=== PATIENT | male | born 2000 | race Hispanic/Latino ===

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

== ENCOUNTER 2021-07-05 18:19 | Emergency (ER) | payer SELFPAY ==
[2021-07-05] MEDS ORDERED: dexAMETHasone 4 MG TAB ONE (19:54)
[2021-07-05] MEDS ORDERED: HYDROCOD 2.5mg-ACETAMIN 108mg/5mL Soln ONE (19:54)
[2021-07-05] MEDS ORDERED: CEFTRIAXONE 1000 MG/VIAL ONE (20:44)
[2021-07-05] MEDS ORDERED: LIDOCAINE 1% MPF 2 ML AMPULE ONE (20:47)
--- NOTE | 2021-07-05 21:23 | ER ---
Nurse's Notes [facility] Name: Evaristo Guevara Age: 20 yrs Sex: Male : 2000 Arrival Date: 07/05/2021 Time: 18:20 Bed 12 Private MD: Diagnosis: Acute tonsillitis, unspecified Presentation: 07/05 19:32 Chief complaint: Patient states: COVID + my eyes have been hurting, I have been ld1 coughing bad, my throat hurts. My lips just swelled up today. Visible sores in throat and mouth. Coronavirus screen: Client presents with at least one sign or symptom that may indicate coronavirus-19. Standard/surgical mask placed on the client. Ebola Screen: No symptoms or risks identified at this time. Initial Sepsis Screen: Does the patient meet any 2 criteria? No. Patient's initial sepsis screen is negative. Does the patient have a suspected source of infection? No. Patient's initial sepsis screen is negative. Risk Assessment: Do you want to hurt yourself or someone else? Patient reports no desire to harm self or others. Onset of symptoms was July 05, 2021. 19:32 Method Of Arrival: Ambulatory ld1 19:32 Acuity: PAZ 4 ld1 Triage Assessment: 19:36 General: Appears in no apparent distress. comfortable, Behavior is calm, cooperative, ld1 appropriate for age. Pain: Denies pain. EENT: Throat is reddened sores in throat. Neuro: Level of Consciousness is awake, alert, obeys commands, Oriented to person, place, time, situation. Respiratory: Airway is patent Respiratory effort is even, unlabored. Historical: - Allergies: 19:36 No Known Allergies; ld1 - Home Meds: 19:36 None [Active]; ld1 - PMHx: 19:36 None; ld1 - PSHx: 19:36 None; ld1 - Immunization history:: Adult Immunizations not up to date, Client reports having NOT received the Covid vaccine. - Social history:: Smoking status: Patient denies any tobacco usage or history of. Patient/guardian denies using alcohol, street drugs. Screenin:06 Abuse screen: Denies threats or abuse. Nutritional screening: No deficits noted. sf1 Tuberculosis screening: No symptoms or risk factors identified. Fall Risk None identified. Assessment: 20:06 General: Appears in no apparent distress. Behavior is calm, cooperative, appropriate sf1 for age. Pain: Complains of pain in mouth Pain currently is 6 out of 10 on a pain scale. Neuro: No deficits noted. Cardiovascular: No deficits noted. Respiratory: Respiratory effort is even, unlabored. GI: No deficits noted. : No deficits noted. EENT: Reports sores in the mouth. 21:35 Respiratory:. sf1 21:35 Respiratory: Airway is patent. sf1 21:36 Respiratory: Breath sounds are clear bilaterally. sf1 Vital Signs: 19:32 BP 125 / 78; Pulse 112; Resp 18; Temp 100.2(TE); Pulse Ox 98% on R/A; Weight 86.18 kg; ld1 Height 5 ft. 5 in. (165.10 cm); Pain 0/10; 21:31 BP 108 / 69; Pulse 88; Pain 0/10; sf1 19:32 Body Mass Index 31.62 (86.18 kg, 165.10 cm) ld1 ED Course: 18:20 Patient arrived in ED. as 19:36 Triage completed. ld1 19:36 Arm band placed on right wrist. ld1 19:38 Strep Sent. ld1 19:38 Group A Streptococcus Rapid Sc Sent. ld1 19:40 Adam Rodriguez PA is PHCP. cp 19:40 Holger Carnes MD is Attending Physician. cp 19:54 Hailey Hernández RN is Primary Nurse. sf1 20:04 Influenza Screen (a \T\ B) Sent. sf1 20:05 Group A Streptococcus Rapid Sc Sent. sf1 20:06 Bed in low position. Call light in reach. sf1 20:06 No provider procedures requiring assistance completed. Patient did not have IV access sf1 during this emergency room visit. Administered Medications: 20:00 Drug: Lortab Liquid 15 ml Route: PO; sf1 20:00 Drug: Decadron (dexamethasone) 10 mg Route: PO; sf1 20:54 Drug: Rocephin (cefTRIAXone) 1 grams Route: IM; Site: right gluteus; sf1 Outcome: 21:22 Discharge ordered by . cp 21:36 Discharged to home ambulatory. sf1 21:36 Condition: stable 21:36 Discharge instructions given to patient, Instructed on discharge instructions, Demonstrated understanding of instructions, follow-up care, medications, Prescriptions given X 3. 21:36 Patient left the ED. sf1 Signatures: Svetlana Payne Corey, PA PA cp Dibbern, Lauren, RN RN ld1 Hailey Hernández RN RN sf1 Corrections: (The following items were deleted from the chart) 19:38 19:32 Chief complaint: Patient states: my eyes have been hurting, I have been coughing ld1 bad, my throat hurts. My lips just swelled up today. Visible sores in throat and mouth. ld1
--- NOTE | 2021-07-05 21:23 | EDPHYS ---
Physician Documentation [facility] Name: Evaristo Guevara Age: 20 yrs Sex: Male : 2000 Arrival Date: 07/05/2021 Time: 18:20 Bed 12 Private MD: ED Physician Holger Carnes HPI: 07/05 19:50 This 20 yrs old Male presents to ER via Ambulatory with complaints of Sore cp Throat, Lips Swelling. 19:50 The patient presents with sore throat. The patient describes throat pain as constant. cp Onset: The symptoms/episode began/occurred today. Severity of symptoms: in the emergency department the symptoms are unchanged, despite home interventions. Associated signs and symptoms: Pertinent positives: fever, Pertinent negatives diarrhea, shortness of breath, vomiting. Historical: - Allergies: 19:36 No Known Allergies; ld1 - Home Meds: 19:36 None [Active]; ld1 - PMHx: 19:36 None; ld1 - PSHx: 19:36 None; ld1 - Immunization history:: Adult Immunizations not up to date, Client reports having NOT received the Covid vaccine. - Social history:: Smoking status: Patient denies any tobacco usage or history of. Patient/guardian denies using alcohol, street drugs. ROS: 19:55 Constitutional: Negative for fever, poor PO intake. cp 19:55 Eyes: Negative for injury, pain, redness, and discharge. cp 19:55 ENT: Positive for sore throat, Negative for drainage from ear(s), ear pain, difficulty swallowing, difficulty handling secretions. 19:55 Respiratory: Negative for cough, shortness of breath, wheezing. 19:55 Abdomen/GI: Negative for abdominal pain, nausea, vomiting, and diarrhea. 19:55 Neuro: Negative for headache, weakness. 19:55 All other systems are negative. Exam: 19:58 Constitutional: The patient appears in no acute distress, alert, awake, non-toxic, well cp developed, well nourished. 19:58 Head/Face: Normocephalic, atraumatic. cp 19:58 Eyes: Periorbital structures: appear normal, Conjunctiva: normal, no exudate, no injection, Lids and lashes: appear normal, bilaterally. 19:58 ENT: External ear(s): are unremarkable, Ear canal(s): are normal, clear, TM's: bulging, is not appreciated, bilaterally, erythema, is not appreciated, bilaterally, Nose: is normal, Mouth: Lips: moist, Oral mucosa: moist, noted to have ulceration(s), Posterior pharynx: Tonsils: bilaterally enlarged, with erythema, with exudate, Uvula: midline, swelling, that is mild, erythema, that is marked. 19:58 Neck: ROM/movement: is normal, is supple, no meningismus, no nuchal rigidity, Lymph nodes: lymphadenopathy is appreciated, anterior cervical nodes. 19:58 Chest/axilla: Inspection: normal. 19:58 Cardiovascular: Rate: tachycardic, Rhythm: regular. 19:58 Respiratory: the patient does not display signs of respiratory distress, Respirations: normal, no use of accessory muscles, no retractions, labored breathing, is not present, Breath sounds: are clear throughout, no decreased breath sounds, no stridor, no wheezing. 19:58 Abdomen/GI: Exam negative for discomfort, distension, guarding, Inspection: abdomen appears normal. Vital Signs: 19:32 BP 125 / 78; Pulse 112; Resp 18; Temp 100.2(TE); Pulse Ox 98% on R/A; Weight 86.18 kg; ld1 Height 5 ft. 5 in. (165.10 cm); Pain 0/10; 21:31 BP 108 / 69; Pulse 88; Pain 0/10; sf1 19:32 Body Mass Index 31.62 (86.18 kg, 165.10 cm) ld1 MDM: 19:42 Patient medically screened. 21:22 Data reviewed: vital signs, nurses notes, lab test result(s), and as a result, I will cp discharge patient. 21:22 Counseling: I had a detailed discussion with the patient and/or guardian regarding: the cp historical points, exam findings, and any diagnostic results supporting the discharge/admit diagnosis, lab results, to return to the emergency department if symptoms worsen or persist or if there are any questions or concerns that arise at home. 07/05 19:38 Order name: Strep ld1 07/05 19:38 Order name: Group A Streptococcus Rapid Sc EDMS 07/05 19:41 Order name: Influenza Screen (a \T\ B) cp 01/13 20:17 Order name: Throat Culture EDMS Administered Medications: 20:00 Drug: Lortab Liquid 15 ml Route: PO; sf1 20:00 Drug: Decadron (dexamethasone) 10 mg Route: PO; sf1 20:54 Drug: Rocephin (cefTRIAXone) 1 grams Route: IM; Site: right gluteus; sf1 Disposition Summary: 07/05/21 21:22 Discharge Ordered Location: Home cp Problem: new cp Symptoms: have improved cp Condition: Stable cp Diagnosis - Acute tonsillitis, unspecified cp Followup: cp - With: Private Physician - When: 2 - 3 days - Reason: Recheck today's complaints Discharge Instructions: - Discharge Summary Sheet cp - Tonsillitis cp Forms: - Medication Reconciliation Form cp - Thank You Letter cp - Antibiotic Education cp - Prescription Opioid Use cp Prescriptions: - Lidocaine Viscous - take 5 milliliter by ORAL route every 4-6 hours As needed; 1 bottle; Refills: cp 0, Product Selection Permitted - Augmentin 875-125 mg Oral Tablet - take 1 tablet by ORAL route every 12 hours for 10 days; 20 tablet; Refills: 0, cp Product Selection Permitted - Ibuprofen 800 mg Oral Tablet - take 1 tablet by ORAL route every 8 hours As needed take with food; 30 tablet; cp Refills: 0, Product Selection Permitted Signatures: Dispatcher [employer] EDOR Adam Rodriguez PA PA cp Sapna Restrepo, RN RN ld1 Hailey Hernández RN RN sf1
[2021-07-05 21:41] VITALS: TEMP 100.2; O2SAT 98
[2021-07-05 21:42] VITALS: BP 108/69
== END 2021-07-05 21:36 | disposition home or self-care (01) ==
LOC: ER 18:19
DX: J03.90 Acute tonsillitis, unspecified (principal)
CPT/HCPCS: 87070; 87081; 87804; 96372; 99283; J8540

== ENCOUNTER 2022-11-28 15:03 | Emergency (ER) | payer SELFPAY ==
--- NOTE | 2022-11-28 15:56 | ER ---
Nurse's Notes [facility] Name: Evaristo Guevara Age: 22 yrs Sex: Male : 2000 Arrival Date: 11/28/2022 Time: 15:03 Bed IW1 Private MD: Diagnosis: Acute nasopharyngitis [common cold] Presentation: 11/28 15:24 Ebola Screen: Patient denies travel to an Ebola-affected area in the 21 days before ll1 illness onset. Initial Sepsis Screen: Does the patient meet any 2 criteria? No. Patient's initial sepsis screen is negative. Does the patient have a suspected source of infection? Yes: Productive cough/pneumonia. Risk Assessment: Do you want to hurt yourself or someone else? Patient reports no desire to harm self or others. 15:24 Method Of Arrival: Ambulatory ll1 15:28 Chief complaint: Patient states: Sore throat, runny nose since Friday. Coronavirus ll1 screen: Client denies travel out of the [place] in the last 14 days. fatigue, runny nose, sore throat, Client presents with at least one sign or symptom that may indicate coronavirus-19. Standard/surgical mask placed on the client. Onset of symptoms was November 25, 2022. 15:28 Acuity: PAZ 4 ll1 Triage Assessment: 16:05 General: Appears in no apparent distress. Behavior is calm, cooperative, appropriate ll1 for age. Pain: Denies pain. EENT: Reports nasal congestion pain when swallowing. Neuro: No deficits noted. Cardiovascular: No deficits noted. Respiratory: No deficits noted. GI: No signs and/or symptoms were reported involving the gastrointestinal system. : No signs and/or symptoms were reported regarding the genitourinary system. Derm: No deficits noted. Musculoskeletal: No deficits noted. Historical: - Allergies: 15:29 No Known Allergies; ll1 - PMHx: 15:29 None; ll1 - PSHx: 15:29 None; ll1 - Immunization history:: Adult Immunizations up to date. - Social history:: Smoking status: Patient denies any tobacco usage or history of. Screenin:06 [facility] ED Fall Risk Assessment (Adult) History of falling in the last 3 months, ll1 including since admission No falls in past 3 months (0 pts). Abuse screen: Denies threats or abuse. Denies injuries from another. Nutritional screening: No deficits noted. Tuberculosis screening: No symptoms or risk factors identified. Vital Signs: 15:28 BP 114 / 71; Pulse 80; Resp 17; Temp 99; Pulse Ox 98% on R/A; Weight 75.75 kg; Height 5 ll1 ft. 11 in. ; Pain 6/10; 15:28 Body Mass Index 23.29 (75.75 kg, 180.34 cm) ll1 15:28 Pain Scale: Adult ll1 ED Course: 15:06 Patient arrived in ED. rg4 15:10 Adam Rodriguez PA is PHCP. cp 15:10 August Harris DO is Attending Physician. cp 15:24 Arm band placed on. ll1 15:29 Triage completed. ll1 15:32 Strep Sent. ap3 16:06 Patient has correct armband on for positive identification. Bed in low position. Call ll1 light in reach. Side rails up X2. 16:06 No provider procedures requiring assistance completed. Patient did not have IV access ll1 during this emergency room visit. Administered Medications: No medications were administered Medication: 16:06 VIS not applicable for this client. ll1 Outcome: 15:56 Discharge ordered by MD. cp 16:06 Discharged to home ambulatory. ll1 16:06 Condition: stable 16:06 Discharge instructions given to patient, Instructed on discharge instructions, follow up and referral plans. medication usage, Demonstrated understanding of instructions, follow-up care, medications, Prescriptions given X 1. 16:07 Patient left the ED. ll1 Signatures: Adam Rodriguez PA PA cp Garcia, Rubi rg4 Consuelo Velásquez RN RN ap3 Debra Rodriguez RN RN ll1
--- NOTE | 2022-11-28 15:56 | EDPHYS ---
Physician Documentation [facility] Name: Evaristo Guevara Age: 22 yrs Sex: Male : 2000 Arrival Date: 11/28/2022 Time: 15:03 Bed IW1 Private MD: ED Physician August Harris HPI: 11/28 15:36 This 22 yrs old Male presents to ER via Ambulatory with complaints of Flu cp Symptoms. 15:36 The patient presents with sore throat. cp 15:36 Onset: The symptoms/episode began/occurred 3 day(s) ago. cp 15:36 Severity of symptoms: in the emergency department the symptoms are unchanged, despite cp home interventions. Associated signs and symptoms: Pertinent positives: nasal congestion, Pertinent negatives earache, fever, headache. Historical: - Allergies: 15:29 No Known Allergies; ll1 - PMHx: 15:29 None; ll1 - PSHx: 15:29 None; ll1 - Immunization history:: Adult Immunizations up to date. - Social history:: Smoking status: Patient denies any tobacco usage or history of. ROS: 15:40 Constitutional: Negative for body aches, chills, fever, poor PO intake. cp 15:40 Eyes: Negative for injury, pain, redness, and discharge. cp 15:40 ENT: Positive for sore throat, nasal congestion, Negative for drainage from ear(s), ear pain, difficulty swallowing, difficulty handling secretions. 15:40 Respiratory: Negative for cough, wheezing. 15:40 Abdomen/GI: Negative for abdominal pain, vomiting, diarrhea, constipation. 15:40 Skin: Negative for rash. 15:40 Neuro: Negative for altered mental status, headache, weakness. 15:40 All other systems are negative. Exam: 15:45 Constitutional: The patient appears in no acute distress, alert, awake, non-toxic, well cp developed, well nourished. 15:45 Head/Face: Normocephalic, atraumatic. cp 15:45 Eyes: Periorbital structures: appear normal, Conjunctiva: normal, no exudate, no injection, Sclera: no appreciated abnormality, Lids and lashes: appear normal, bilaterally. 15:45 ENT: External ear(s): are unremarkable, Ear canal(s): are normal, clear, TM's: dullness, bilaterally, Nose: is normal, Mouth: Lips: moist, Oral mucosa: moist, Posterior pharynx: Airway: no evidence of obstruction, patent, Tonsils: with erythema, no enlargement, no exudate, erythema, that is mild, exudate, is not appreciated. 15:45 Neck: ROM/movement: is normal, is supple, without pain, no range of motions limitations, no meningismus, Lymph nodes: no appreciated lymphadenopathy. 15:45 Chest/axilla: Inspection: normal. 15:45 Cardiovascular: Rate: normal. 15:45 Respiratory: the patient does not display signs of respiratory distress, Respirations: normal, no use of accessory muscles, no retractions, labored breathing, is not present, Breath sounds: are clear throughout, no decreased breath sounds, no stridor, no wheezing. Vital Signs: 15:28 BP 114 / 71; Pulse 80; Resp 17; Temp 99; Pulse Ox 98% on R/A; Weight 75.75 kg; Height 5 ll1 ft. 11 in. ; Pain 6/10; 15:28 Body Mass Index 23.29 (75.75 kg, 180.34 cm) ll1 15:28 Pain Scale: Adult ll1 MDM: 15:35 Patient medically screened. cp 15:45 Differential diagnosis: group A strep tonsillitis, laryngitis, mononucleosis, cp peritonsillar abscess pharyngitis, retropharyngeal abcess tonsillitis. 15:55 Data reviewed: vital signs, nurses notes, lab test result(s), and as a result, I will cp discharge patient. 15:55 Counseling: I had a detailed discussion with the patient and/or guardian regarding: the cp historical points, exam findings, and any diagnostic results supporting the discharge/admit diagnosis, to return to the emergency department if symptoms worsen or persist or if there are any questions or concerns that arise at home. 11/28 15:30 Order name: Strep ll1 11/28 16:04 Order name: Throat Culture EDMS Administered Medications: No medications were administered Disposition: 16:21 Co-signature as Attending Physician, August KRISHNAN was immediately available on-site ms3 in the Emergency Department for consultation in the care of the patient. Disposition Summary: 11/28/22 15:56 Discharge Ordered Location: Home cp Problem: new cp Symptoms: are unchanged cp Condition: Stable cp Diagnosis - Acute nasopharyngitis [common cold] cp Followup: cp - With: Private Physician - When: 2 - 3 days - Reason: Worsening of condition Discharge Instructions: - Pharyngitis cp - Sore Throat cp - Discharge Summary Sheet ll1 Forms: - Medication Reconciliation Form cp - Thank You Letter cp - Antibiotic Education cp - Prescription Opioid Use cp - Work release form ll1 Prescriptions: - Tessalon Perles 100 mg Oral Capsule - take 1 capsule by ORAL route every 8 hours As needed; 15 capsule; Refills: 0, cp Product Selection Permitted Signatures: Dispatcher [employer] EDMS Adam Rodriguez PA PA cp Lewis, Lynsay, RN RN ll1 August Harris DO DO ms3 Corrections: (The following items were deleted from the chart) 11/29 15:24 11/28 15:30 Differential diagnosis: group A strep tonsillitis, laryngitis, cp mononucleosis, peritonsillar abscess pharyngitis, retropharyngeal abcess tonsillitis, cp
[2022-11-28 17:44] VITALS: BP 114/71; TEMP 99; O2SAT 98
== END 2022-11-28 16:07 | disposition home or self-care (01) ==
LOC: ER 15:03
DX: J00 Acute nasopharyngitis [common cold] (principal)
CPT/HCPCS: 87070; 87081; 99283

== ENCOUNTER 2023-02-04 04:20 | Emergency (ER) | payer SELFPAY ==
--- NOTE | 2023-02-04 05:00 | ER ---
Nurse's Notes [facility] Name: Evaristo Guevara Age: 22 yrs Sex: Male : 2000 Arrival Date: 02/04/2023 Time: 04:20 Bed 8 Private MD: Diagnosis: Dental caries, unspecified;Dental cavity, acute dental pain, acute pulpitis;Tooth #18 dental cavity and dental caries Presentation: 02/04 04:53 Chief complaint: Patient states: I have been dealing with tooth pain for the last few vc1 months, it comes and goes but tonight it hurt really bad. I'm going to try and make an appointment with the dentist tomorrow. Coronavirus screen: Vaccine status: Patient reports being unvaccinated. Client denies travel out of the [place] in the last 14 days. At this time, the client does not indicate any symptoms associated with coronavirus-19. Ebola Screen: Patient negative for fever greater than or equal to 101.5 degrees Fahrenheit, and additional compatible Ebola Virus Disease symptoms Patient denies exposure to infectious person. Patient denies travel to an Ebola-affected area in the 21 days before illness onset. No symptoms or risks identified at this time. Initial Sepsis Screen: Does the patient meet any 2 criteria? No. Patient's initial sepsis screen is negative. Does the patient have a suspected source of infection? No. Patient's initial sepsis screen is negative. Risk Assessment: Do you want to hurt yourself or someone else? Patient reports no desire to harm self or others. Onset of symptoms is unknown. 04:53 Method Of Arrival: Ambulatory vc1 04:53 Acuity: PAZ 4 vc1 Triage Assessment: 04:57 General: Appears in no apparent distress. uncomfortable, Behavior is calm, cooperative, vc1 appropriate for age. Pain: Complains of pain in left bottom and top back two teeth Pain does not radiate. Pain currently is 10 out of 10 on a pain scale. Quality of pain is described as sharp, throbbing, Pain began off and on a few months Is intermittent. EENT: Reports pain in Left top and bottom back two teeth. Neuro: Level of Consciousness is awake, alert, obeys commands, Oriented to person, place, time, situation, Appropriate for age. Cardiovascular: No deficits noted. Respiratory: Airway is patent Respiratory effort is even, unlabored, Respiratory pattern is regular, symmetrical. GI: No deficits noted. No signs and/or symptoms were reported involving the gastrointestinal system. : No deficits noted. No signs and/or symptoms were reported regarding the genitourinary system. Derm: No deficits noted. No signs and/or symptoms reported regarding the dermatologic system. Musculoskeletal: No deficits noted. No signs and/or symptoms reported regarding the musculoskeletal system. Historical: - Allergies: 04:59 No Known Allergies; vc1 - Home Meds: 04:59 None [Active]; vc1 - PMHx: 04:59 None; vc1 - PSHx: 04:59 None; vc1 - Immunization history:: Client reports having NOT received the Covid vaccine. - Social history:: Smoking status: Patient denies any tobacco usage or history of. - Family history:: not pertinent. Screenin:59 [facility] ED Fall Risk Assessment (Adult) History of falling in the last 3 months, vc1 including since admission No falls in past 3 months (0 pts) Confusion or Disorientation No (0 pts) Intoxicated or Sedated No (0 pts) Impaired Gait No (0 pts) Mobility Assist Device Used No (0 pt) Altered Elimination No (0 pt) Score/Fall Risk Level 0 - 2 = Low Risk Oriented to surroundings, Maintained a safe environment, Educated pt \T\ family on fall prevention, incl call for assistance when getting out of bed. Abuse screen: Denies threats or abuse. Nutritional screening: No deficits noted. Tuberculosis screening: No symptoms or risk factors identified. Vital Signs: 04:53 BP 126 / 91; Pulse 76; Resp 14; Temp 98.4; Pulse Ox 99% ; Weight 79.38 kg; Height 5 ft. vc1 10 in. ; Pain 10/10; 04:53 Body Mass Index 25.11 (79.38 kg, 177.8 cm) vc1 04:53 Pain Scale: Adult vc1 ED Course: 04:23 Patient arrived in ED. ag3 04:48 Lucas De Oliveira MD is Attending Physician. sp4 04:57 Triage completed. vc1 04:57 Arm band placed on left wrist. vc1 04:59 Francisco Whitaker DDS is Referral Physician. sp4 05:00 Patient has correct armband on for positive identification. Bed in low position. Call vc1 light in reach. Pulse ox on. NIBP on. 05:26 No provider procedures requiring assistance completed. Patient did not have IV access vc1 during this emergency room visit. Administered Medications: 05:06 Drug: traMADol PO 100 mg Route: PO; jb4 05:06 Drug: Ondansetron PO 4 mg Route: PO; jb4 05:06 Drug: Cephalexin PO 500 mg Route: PO; jb4 05:11 Drug: Ketorolac IM 60 mg Route: IM; Site: left gluteus; jb4 Medication: 05:00 VIS not applicable for this client. vc1 Outcome: 05:00 Discharge ordered by . sp4 05:29 Discharged to home ambulatory. vc1 05:29 Condition: good 05:29 Discharge instructions given to patient, Instructed on discharge instructions, follow up and referral plans. medication usage, Demonstrated understanding of instructions, follow-up care, medications, Prescriptions given X 3. 05:30 Patient left the ED. vc1 Signatures: Blake Toure RN RN jb4 Felipa Dawson 3 Anna Kumar RN RN vc1 Lucas De Oliveira MD MD sp4
--- NOTE | 2023-02-04 05:00 | EDPHYS ---
Physician Documentation [facility] Name: Evaristo Guevara Age: 22 yrs Sex: Male : 2000 Arrival Date: 02/04/2023 Time: 04:20 Bed 8 Private MD: ED Physician Lucas De Oliveira HPI: 02/04 04:48 This 22 yrs old Male presents to ER via Unassigned with complaints of sp4 Toothache. 04:48 There is acute to say, . sp4 04:55 22-year-old male presents with left lower molar pain for the past 2-month associated sp4 with cracked tooth and a cavity. Patient states that pain has intensified this morning and it was difficult to tolerate. Patient denied any facial swelling or fever. Historical: - Allergies: 04:59 No Known Allergies; vc1 - Home Meds: 04:59 None [Active]; vc1 - PMHx: 04:59 None; vc1 - PSHx: 04:59 None; vc1 - Immunization history:: Client reports having NOT received the Covid vaccine. - Social history:: Smoking status: Patient denies any tobacco usage or history of. - Family history:: not pertinent. ROS: 04:55 Constitutional: Negative for fever, chills, and weight loss, Eyes: Negative for injury, sp4 pain, redness, and discharge, ENT: Negative for injury, positive for left lower molar dental cavity and pain 04:55 All other systems are negative. Exam: 04:55 Constitutional: This is a well developed, well nourished patient who is awake, alert, sp4 and in no acute distress. Head/Face: Normocephalic, atraumatic. Eyes: Pupils equal round and reactive to light, extra-ocular motions intact. Lids and lashes normal. Conjunctiva and sclera are not injected. Cornea within normal limits. Periorbital areas with no swelling, redness, or edema. ENT: Nares patent. No nasal discharge, no septal abnormalities noted. Tympanic membranes are normal and external auditory canals are clear. Oropharynx with no redness, swelling, or masses, exudates, or evidence of obstruction, uvula midline. Mucous membranes moist. Left lower molar tooth #18 posterior large dental cavity, sensitivity, tenderness, there is also signs of pulpitis. Incidentally there are unerupted wisdom teeth, no signs of gingival abscess, signs of mild chronic periodontal disease. Neck: Trachea midline, no thyromegaly or masses palpated, and no cervical lymphadenopathy. Supple, full range of motion without nuchal rigidity, or vertebral point tenderness. Chest/axilla: Normal chest wall appearance and motion. Nontender with no deformity. No lesions are appreciated. Cardiovascular: Regular rate and rhythm with a normal S1 and S2. No gallops, murmurs, or rubs. Normal PMI, no JVD. No pulse deficits. Respiratory: Lungs have equal breath sounds bilaterally, clear to auscultation and percussion. No rales, rhonchi or wheezes noted. No increased work of breathing, no retractions or nasal flaring. Abdomen/GI: Soft, non-tender, with normal bowel sounds. No distension or tympany. No guarding or rebound. No evidence of tenderness throughout. Back: No spinal tenderness. No costovertebral tenderness. Skin: Warm, dry with normal turgor. Normal color with no rashes, no lesions, and no evidence of cellulitis. MS/ Extremity: Pulses equal, no cyanosis. Neurovascular intact. Full, normal range of motion. Neuro: Awake and alert, GCS 15, oriented to person, place, time, and situation. Cranial nerves II-XII grossly intact. Motor strength 5/5 in all extremities. Sensory grossly intact. Psych: Awake, alert, with orientation to person, place and time. Behavior, mood, and affect are within normal limits Vital Signs: 04:53 BP 126 / 91; Pulse 76; Resp 14; Temp 98.4; Pulse Ox 99% ; Weight 79.38 kg; Height 5 ft. vc1 10 in. ; Pain 10/10; 04:53 Body Mass Index 25.11 (79.38 kg, 177.8 cm) vc1 04:53 Pain Scale: Adult vc1 MDM: 04:55 Differential diagnosis: dental caries, gingivitis, dental abscess, pericoronitis, sp4 aphthous ulcers, gingivostomatitis. Data reviewed: vital signs, nurses notes, old medical records. Consideration of Admission/Observation Escalation of care including admission/observation considered. ED course: Patient has no signs of drainable gingival abscess, patient warrants moderate pain control, Keflex p.o. for 10 days, also will advise visit with dentist as soon as possible for dental extraction or dental repair. Stable for discharge home. 05:00 Patient medically screened. sp4 Administered Medications: 05:06 Drug: traMADol PO 100 mg Route: PO; jb4 05:06 Drug: Ondansetron PO 4 mg Route: PO; jb4 05:06 Drug: Cephalexin PO 500 mg Route: PO; jb4 05:11 Drug: Ketorolac IM 60 mg Route: IM; Site: left gluteus; jb4 Disposition Summary: 02/04/23 05:00 Discharge Ordered Location: Home sp4 Problem: new sp4 Symptoms: have improved sp4 Condition: Stable sp4 Diagnosis - Dental caries, unspecified sp4 - Dental cavity, acute dental pain, acute pulpitis sp4 - Tooth #18 dental cavity and dental caries sp4 Followup: sp4 - With: Francisco Whitaker DDS - When: 1 - 2 days - Reason: Recheck today's complaints Discharge Instructions: - Discharge Summary Sheet sp4 - Dental Caries, Adult sp4 Forms: - Work release form jb4 - Patient Portal Instructions sp4 Prescriptions: - Cephalexin 500 mg Oral Capsule - take 1 capsule by ORAL route every 8 hours for 10 days; 30 capsule; Refills: 0, sp4 Product Selection Permitted - Ibuprofen 800 mg Oral Tablet - take 1 tablet by ORAL route every 8 hours As needed take with food; 30 tablet; sp4 Refills: 0, Product Selection Permitted - Tramadol 50 mg Oral Tablet - take 1 tablet by ORAL route every 8 hours as needed; 12 tablet; Refills: 0, sp4 Product Selection Permitted Signatures: Blake Toure RN RN jb4 Anna Kumar RN RN vc1 Lucas De Oliveira MD MD sp4
[2023-02-04] MEDS ORDERED: TRAMADOL HCL 50 MG TAB ONE (05:13)
[2023-02-04] MEDS ORDERED: ONDANSETRON 4 MG (ODT) TAB ONE (05:14)
[2023-02-04] MEDS ORDERED: CEPHALEXIN 250 MG CAP ONE (05:14)
[2023-02-04] MEDS ORDERED: KETOROLAC 30 MG/ML INJ ONE (05:18)
[2023-02-04 06:07] VITALS: BP 126/91; TEMP 98.4; O2SAT 99
== END 2023-02-04 05:30 | disposition home or self-care (01) ==
LOC: ER 04:20
DX: K02.9 Dental caries, unspecified (principal); K04.01 Reversible pulpitis
CPT/HCPCS: 96372; 99284; Q0162

== ENCOUNTER → 2023-07-13 | Emergency (ER) | payer SELFPAY ==
--- NOTE | 2023-07-13 02:34 | ER ---
Nurse's Notes [facility] Name: Evaristo Guevara Age: 22 yrs Sex: Male : 2000 Arrival Date: 07/13/2023 Time: 02:01 Bed 8 Private MD: Diagnosis: Dental caries, unspecified;Dental Pain Presentation: 07/13 02:12 Chief complaint: Patient states: I have a bad toothache, I've had it for a while, I've vc1 been here for it before, I just haven't had time to do to the dentist. Coronavirus screen: Vaccine status: Patient reports being unvaccinated. At this time, the client does not indicate any symptoms associated with coronavirus-19. Ebola Screen: Patient negative for fever greater than or equal to 101.5 degrees Fahrenheit, and additional compatible Ebola Virus Disease symptoms Patient denies exposure to infectious person. Patient denies travel to an Ebola-affected area in the 21 days before illness onset. No symptoms or risks identified at this time. Initial Sepsis Screen: Does the patient meet any 2 criteria? No. Patient's initial sepsis screen is negative. Does the patient have a suspected source of infection? Yes: Skin breakdown/wound. Risk Assessment: Do you want to hurt yourself or someone else? Patient reports no desire to harm self or others. Onset of symptoms is unknown. 02:12 Method Of Arrival: Ambulatory vc1 02:12 Acuity: PAZ 4 vc1 Triage Assessment: 02:15 General: Appears in no apparent distress. uncomfortable, Behavior is calm, cooperative, vc1 appropriate for age. Pain: Complains of pain in lower left third molar Pain radiates to left ear, left jaw and left submandibular area Pain currently is 9 out of 10 on a pain scale. Quality of pain is described as. 02:18 EENT: Reports pain in lower left third molar. Neuro: No deficits noted. Cardiovascular: vc1 No deficits noted. Respiratory: Airway is patent Respiratory effort is even, unlabored, Respiratory pattern is regular, symmetrical. GI: No deficits noted. No signs and/or symptoms were reported involving the gastrointestinal system. : No deficits noted. No signs and/or symptoms were reported regarding the genitourinary system. Derm: No deficits noted. No signs and/or symptoms reported regarding the dermatologic system. Musculoskeletal: No deficits noted. No signs and/or symptoms reported regarding the musculoskeletal system. Historical: - Allergies: 02:14 No Known Allergies; vc1 - Home Meds: 02:14 None [Active]; vc1 - PMHx: 02:14 None; vc1 - PSHx: 02:14 None; vc1 - Immunization history:: Client reports having NOT received the Covid vaccine. Flu vaccine is not up to date. - Social history:: Smoking status: Patient denies any tobacco usage or history of. Screenin:[address] [facility] ED Fall Risk Assessment (Adult) History of falling in the last 3 months, vc1 including since admission No falls in past 3 months (0 pts) Confusion or Disorientation No (0 pts) Intoxicated or Sedated No (0 pts) Impaired Gait Yes (1 pt) Mobility Assist Device Used No (0 pt) Altered Elimination No (0 pt) Score/Fall Risk Level 0 - 2 = Low Risk Oriented to surroundings, Maintained a safe environment, Educated pt \T\ family on fall prevention, incl call for assistance when getting out of bed. Abuse screen: Denies threats or abuse. Nutritional screening: No deficits noted. Tuberculosis screening: No symptoms or risk factors identified. Vital Signs: 02:12 BP 143 / 95; Pulse 69; Resp 17; Temp 97.2; Pulse Ox 99% ; Weight 86.18 kg; Height 5 ft. vc1 11 in. ; Pain 9/10; 02:12 Body Mass Index 26.50 (86.18 kg, 180.34 cm) vc1 02:12 Pain Scale: Adult vc1 ED Course: 02:04 Patient arrived in ED. jj6 02:10 August Harris DO is Attending Physician. ms3 02:14 Triage completed. vc1 02:15 Arm band placed on right wrist. vc1 02:18 Anna Kumar, GT is Primary Nurse. vc1 02:19 Patient has correct armband on for positive identification. Bed in low position. Call vc1 light in reach. Pulse ox on. NIBP on. 02:29 Addi Evans DDS is Referral Physician. ms3 02:50 Provided Education on: follow up with dentist, information on [place] [id number] [employer]. 02:50 No provider procedures requiring assistance completed. Patient did not have IV access vc1 during this emergency room visit. Administered Medications: No medications were administered Medication: 02:19 VIS not applicable for this client. vc1 Outcome: 02:34 Discharge ordered by . ms3 02:50 Discharged to home ambulatory, with significant other, vc1 02:50 Condition: good 02:50 Discharge instructions given to patient, Instructed on discharge instructions, follow up and referral plans. medication usage, Demonstrated understanding of instructions, follow-up care, medications, Prescriptions given X 2, 02:51 Patient left the ED. vc1 Signatures: August Harris, DO ms3 Fidelina Foreman jj6 Anna Kumar, RN RN vc1
[2023-07-13 04:13] VITALS: BP 143/95; TEMP 97.2; O2SAT 99
--- NOTE | 2023-07-14 02:51 | EDPHYS ---
Physician Documentation [facility] Name: Evaristo Guevara Age: 22 yrs Sex: Male : 2000 Arrival Date: 07/13/2023 Time: 02:01 Bed 8 Private MD: ED Physician August Harris HPI: 07/13 02:34 This 22 yrs old Male presents to ER via Ambulatory with complaints of ms3 Toothache. 02:34 22-year-old male with no past medical history presents to the emergency department for ms3 left lower tooth pain that has been ongoing for years. Patient states the pain has become worse over the last week. Patient rates the pain a 9/10 and describes pain as throbbing. Patient states he took Advil and Tylenol with minimal relief.. Historical: - Allergies: 02:14 No Known Allergies; vc1 - Home Meds: 02:14 None [Active]; vc1 - PMHx: 02:14 None; vc1 - PSHx: 02:14 None; vc1 - Immunization history:: Client reports having NOT received the Covid vaccine. Flu vaccine is not up to date. - Social history:: Smoking status: Patient denies any tobacco usage or history of. ROS: 02:34 Constitutional: Negative for fever, and chills. Neck: Negative for injury, pain, and ms3 swelling, 02:34 Cardiovascular: Negative for chest pain, and palpitations. Respiratory: Negative for shortness of breath, cough, wheezing, and pleuritic chest pain, MS/Extremity: Negative for injury and deformity, Skin: Negative for injury, rash, and discoloration, 02:34 ENT: Positive for dental pain, 02:34 All other systems are negative, Exam: 02:34 Constitutional: This is a well developed, well nourished patient who is awake, alert, ms3 and in no acute distress. Head/Face: Normocephalic, atraumatic. Chest/axilla: Normal chest wall appearance and motion. Nontender with no deformity. Cardiovascular: Regular rate and rhythm with a normal S1 and S2. No gallops, murmurs, or rubs. Normal PMI, no JVD. No pulse deficits. Respiratory: Lungs have equal breath sounds bilaterally, clear to auscultation and percussion. No rales, rhonchi or wheezes noted. No increased work of breathing, no retractions or nasal flaring. Abdomen/GI: Soft, non-tender, with normal bowel sounds. No distension or tympany. No guarding or rebound. No evidence of tenderness throughout. Skin: Warm, dry with normal turgor. Normal color with no rashes, no lesions, and no evidence of cellulitis. MS/ Extremity: Pulses equal, no cyanosis. Neurovascular intact. Full, normal range of motion. 02:34 ENT: Dental exam: dental caries, that is moderate, specifically in the lower left first molar (#19), Vital Signs: 02:12 BP 143 / 95; Pulse 69; Resp 17; Temp 97.2; Pulse Ox 99% ; Weight 86.18 kg; Height 5 ft. vc1 11 in. ; Pain 9/10; 02:12 Body Mass Index 26.50 (86.18 kg, 180.34 cm) vc1 02:12 Pain Scale: Adult vc1 MDM: 02:28 Patient medically screened. ms3 02:34 Differential diagnosis: dental caries, gingivitis, dental abscess. Data reviewed: vital ms3 signs, nurses notes, and as a result, I will discharge patient. Counseling: I had a detailed discussion with the patient and/or guardian regarding the historical points, exam findings, and any diagnostic results supporting the discharge/admit diagnosis, the need for outpatient follow up, to return to the emergency department if symptoms worsen or persist or if there are any questions or concerns that arise at home. Special discussion: I discussed with the patient/guardian in detail that at this point there is no indication for admission to the hospital. It is understood, however, that if the symptoms persist or worsen the patient needs to return immediately for re-evaluation. ED course: Discussed physical exam finding with patient. Patient to follow-up with dentistry in 2 to 3 days. Patient understands and agrees with plan. All questions were answered. Return precautions discussed include worsening symptoms, or any other concerns. No signs of Ludewig's angina present on exam. Administered Medications: No medications were administered Disposition: 23:36 Chart complete. ms3 Disposition Summary: 07/13/23 02:34 Discharge Ordered Notes: Location: Home ms3 Condition: Stable ms3 Diagnosis - Dental caries, unspecified ms3 - Dental Pain ms3 Followup: ms3 - With: Fugler, [place], DDS - When: 2 - 3 days - Reason: Recheck today's complaints Discharge Instructions: - Discharge Summary Sheet ms3 - Dental Caries, Adult ms3 - Dental Pain ms3 Forms: - Medication Reconciliation Form ms3 - Thank You Letter ms3 - Antibiotic Education ms3 - Prescription Opioid Use ms3 - Patient Portal Instructions ms3 - Leadership Thank You Letter ms3 Prescriptions: - penicillin V potassium 500 mg Oral tablet - take 1 tablet ORAL route 4 times per day for 10 days; 40 tablet; Refills: 0, ms3 Product Selection Permitted - Ibuprofen 600 mg Oral Tablet - take 1 tablet ORAL route every 6 hours As needed take with food; 30 tablet; ms3 Refills: 0, Product Selection Permitted Signatures: August Harris DO DO ms3 Anna Kumar, RN RN vc1
== END ==
LOC: ER 02:01
DX: K02.9 Dental caries, unspecified (principal)
CPT/HCPCS: 99283

== ENCOUNTER 2023-12-22 15:23 | Emergency (ER) | payer BC ==
--- OUTSIDE RECORDS SUMMARY | 2023-12-22 15:26 | XMS REPORT | Continuity of Care Document ---
Author Name Unknown Address [address] [place] [address] [employer] Address [address] [place] [address] Care Team Providers Care Jacquard Lace Weaver Name Role Phone No, PCP Attending Clinician Unavailable Encounters Start Date/Time End Date/Time Encounter Type Admission Type Attending Clinicians Care Facility Care Department Encounter ID Source 2023-12-09 15:34:00 Outpatient No, PCP [facility] [id number] 2 [id number] [facility]
[2023-12-22] MEDS ORDERED: DIAZEPAM 5 MG TABLET ONE (16:00)
[2023-12-22] MEDS ORDERED: HYDROCODONE/APAP 5/325 MG TAB ONE (16:00)
--- NOTE | 2023-12-22 16:10 | RAD REPORT ---
EXAM DESCRIPTION: RAD - C Spine W Obliques - 12/22/2023 3:58 pm CLINICAL HISTORY: PAIN COMPARISON: <Comparisons> FINDINGS: Cervical bodies are normal in height and alignment.No fracture or acute bony process seen. Mild endplate osteophyte at C3-4. No prevertebral soft tissue thickening or other suspicious soft tissue finding. No significant foraminal encroachment on oblique views. IMPRESSION: Mild C3-4 spondylosis.
[2023-12-22 17:17] LABS: Hematocrit 46.9 % (39.6-49.0); Hemoglobin 15.6 g/dL (13.6-17.9); MCH 30.4 pg (27.0-35.0); MCHC 33.3 g/dL (32.0-36.0); MCV 91.4 fL (80-100); MPV 7.7 fL (7.6-11.3); Platelets 455 thou/uL (152-406); RBC Red Blood Cell Count 5.13 M/uL (4.33-5.43); Red Cell Distribution Width 12.3 % (12.1-15.2)
--- NOTE | 2023-12-22 18:32 | RAD REPORT ---
EXAM DESCRIPTION: CT - Neck Angio - 12/22/2023 6:19 pm CLINICAL HISTORY: neck pain Neck pain and swelling COMPARISON: <Comparisons> TECHNIQUE: CT angiography of the neck vessels was performed with MIPs. All CT scans are performed using dose optimization technique as appropriate and may include automated exposure control or mA/KV adjustment according to patient size. FINDINGS: A left aortic arch is identified with normal three vessel configuration of the great vesse ls. No significant flow abnormality is seen of the common carotid bilaterally. No significant stenosis is identified involving the cervical segments of both internal carotid arteri es. Normal flow is seen within both vertebral arteries. IMPRESSION: No significant flow abnormality of the neck vessels is identified. NASCET criteria used. Mild 0-49% stenosis Moderate 50-69% stenosis Severe 70-99% stenosis
[2023-12-22] MEDS ORDERED: KETOROLAC 30 MG/ML INJ ONE (19:02)
--- NOTE | 2023-12-22 19:04 | ER ---
Nurse's Notes [facility] Name: Evaristo Guevara Age: 23 yrs Sex: Male : 2000 Arrival Date: 12/22/2023 Time: 15:23 Bed Treatment Private MD: Diagnosis: Neck pain Presentation: 12/21 15:31 Chief complaint: Patient states: Neck pain and stiffness getting worse for 3 days. No ll1 trauma or falls. Coronavirus screen: Client denies travel out of the [place] in the last 14 days. At this time, the client does not indicate any symptoms associated with coronavirus-19. Ebola Screen: Patient denies travel to an Ebola-affected area in the 21 days before illness onset. Initial Sepsis Screen: Does the patient meet any 2 criteria? No. Patient's initial sepsis screen is negative. Does the patient have a suspected source of infection? No. Patient's initial sepsis screen is negative. Risk Assessment: Do you want to hurt yourself or someone else? Patient reports no desire to harm self or others. Onset of symptoms was December 21, 2023. 15:31 Method Of Arrival: Ambulatory [facility] 15:31 Acuity: PAZ 3 ll1 Triage Assessment: 16:03 General: Appears in no apparent distress. uncomfortable, Behavior is calm, cooperative. cm10 Pain: Complains of pain in right trapezius and left trapezius and right mid cervical area and left mid cervical area. Neuro: No deficits noted. Level of Consciousness is awake, alert, obeys commands, Oriented to person, place, time, situation, Appropriate for age. Respiratory: No deficits noted. Airway is patent Respiratory effort is even, unlabored, Respiratory pattern is regular, symmetrical. Derm: No deficits noted. Skin is healthy with good turgor, Skin is pink, warm \T\ dry. Musculoskeletal: Reports pain in right trapezius and left trapezius and right mid cervical area and left mid cervical area. Historical: - Allergies: 15: No Known Allergies; ll1 - PMHx: : None; ll1 - PSHx: 15: None; ll1 - Immunization history:: Adult Immunizations up to date. - Infectious Disease History:: Denies. - Social history:: Smoking status: Patient denies any tobacco usage or history of. Screenin:04 [facility] ED Fall Risk Assessment (Adult) History of falling in the last 3 months, cm10 including since admission No falls in past 3 months (0 pts) Confusion or Disorientation No (0 pts) Intoxicated or Sedated No (0 pts) Impaired Gait No (0 pts) Mobility Assist Device Used No (0 pt) Altered Elimination No (0 pt) Score/Fall Risk Level 0 - 2 = Low Risk Oriented to surroundings, Maintained a safe environment, Hourly rounding (assess needs \T\ fall precautionary measures) done. Abuse screen: Denies threats or abuse. Denies injuries from another. Nutritional screening: No deficits noted. Tuberculosis screening: No symptoms or risk factors identified. Assessment: 16:58 General: Appears in no apparent distress. uncomfortable, Behavior is calm, cooperative. al5 Pain: Complains of pain in neck Pain currently is 10 out of 10 on a pain scale. Pain began this morning Is continuous. Neuro: No deficits noted. Level of Consciousness is awake, alert, obeys commands, Oriented to person, place, time, situation. Cardiovascular: No deficits noted. Patient's skin is warm and dry. Respiratory: Airway is patent Trachea midline Respiratory effort is even, unlabored, Respiratory pattern is regular, symmetrical. GI: No deficits noted. No signs and/or symptoms were reported involving the gastrointestinal system. : No deficits noted. No signs and/or symptoms were reported regarding the genitourinary system. EENT: No deficits noted. No signs and/or symptoms were reported regarding the EENT system. Derm: No deficits noted. No signs and/or symptoms reported regarding the dermatologic system. Musculoskeletal: Reports pain in neck since this morning. Pain is 10 out of 10 on a pain scale. Vital Signs: 15:31 BP 141 / 79; Pulse 90; Resp 17; Temp 98.3; Pulse Ox 98% ; Weight 95.25 kg; Height 5 ft. ll1 11 in. ; Pain 8/10; 16:56 BP 112 / 61; Pulse 101; Resp 18; Pulse Ox 99% on R/A; Pain 10/10; al5 18:40 BP 126 / 88; Pulse 92; Resp 18; Pulse Ox 100% on R/A; al5 15:31 Body Mass Index 29.29 (95.25 kg, 180.34 cm) ll1 15:31 Pain Scale: Adult ll1 16:56 Pain Scale: Adult al5 ED Course: 15:25 Patient arrived in ED. im 15:26 August Harris DO is Attending Physician. ms3 15:32 Triage completed. ll1 15:32 Arm band placed on. ll1 16:00 C Spine W Obliques XRAY In Process Unspecified. EDMS 16:04 Patient has correct armband on for positive identification. Bed in low position. cm10 Provided Education on: ER process and procedures.. Cardiac monitoring not applicable on this patient. 16:04 No provider procedures requiring assistance completed. cm10 16:56 Consuelo Marti, GT is Primary Nurse. al5 17:12 Initial lab(s) drawn, by nj, sent to lab. Inserted saline lock: 20 gauge in left al5 antecubital area, using aseptic technique. Blood collected. 17:13 BMP Sent. al5 17:13 CBC w/o diff Sent. al5 18:21 CT Neck Angio In Process Unspecified. EDMS 19:03 Ricky Fatima DO is Referral Physician. ms3 19:14 IV discontinued, intact, bleeding controlled, No redness/swelling at site. Pressure al5 dressing applied. Administered Medications: 16:02 Drug: HYDROcodone-acetaminophen PO 5 mg-325 mg 1 tabs PO once Route: PO; cm10 17:00 Follow up: Response: No adverse reaction al5 16:02 Drug: Diazepam PO 10 mg PO once Route: PO; cm10 17:00 Follow up: Response: No adverse reaction al5 19:06 Drug: Ketorolac IVP 15 mg IVP once Route: IVP; Site: left antecubital; al5 19:14 Follow up: Response: No adverse reaction al5 Medication: 16:04 VIS not applicable for this client. cm10 Outcome: 19:03 Discharge ordered by MD. ms3 19:15 Discharged to home ambulatory, al5 19:15 Condition: good 19:15 Discharge instructions given to patient, Instructed on discharge instructions, follow up and referral plans. medication usage, Demonstrated understanding of instructions, follow-up care, medications, 19:15 Patient left the ED. al5 Signatures: Dispatcher [employer] EDMS Debra Rodriguez RN RN ll1 August Harris DO DO ms3 Rosa Clark Clarissa, RN RN cm10 Langhorst, Consuelo, RN RN al5
--- NOTE | 2023-12-22 19:04 | EDPHYS ---
Physician Documentation [facility] Name: Evaristo Guevara Age: 23 yrs Sex: Male : 2000 Arrival Date: 12/22/2023 Time: 15:23 Bed Treatment Private MD: ED Physician August Harris HPI: 12/21 15:35 This 23 yrs old Male presents to ER via Ambulatory with complaints of Neck ms3 Pain, >24Hrs Old. 15:35 23-year-old male with no past medical history presents to the emergency department for ms3 3 days of neck pain. Patient rates his discomfort an 8/10. He denies trauma, headache, nausea, vomiting, dizziness.. Historical: - Allergies: 15:31 No Known Allergies; ll1 - PMHx: 15:31 None; ll1 - PSHx: 15:31 None; ll1 - Immunization history:: Adult Immunizations up to date. - Infectious Disease History:: Denies. - Social history:: Smoking status: Patient denies any tobacco usage or history of. ROS: 15:35 Constitutional: Negative for fever, and chills. Cardiovascular: Negative for chest ms3 pain, and palpitations. Respiratory: Negative for shortness of breath, cough, wheezing, and pleuritic chest pain, Abdomen/GI: Negative for abdominal pain, nausea, vomiting, diarrhea, and constipation, MS/Extremity: Negative for injury and deformity, 15:35 Neck: Positive for pain with movement, pain at rest, Exam: 15:35 Constitutional: This is a well developed, well nourished patient who is awake, alert, ms3 and in no acute distress. Head/Face: Normocephalic, atraumatic. Chest/axilla: Normal chest wall appearance and motion. Nontender with no deformity. Cardiovascular: Regular rate and rhythm with a normal S1 and S2. No gallops, murmurs, or rubs. Normal PMI, no JVD. No pulse deficits. Respiratory: Lungs have equal breath sounds bilaterally, clear to auscultation and percussion. No rales, rhonchi or wheezes noted. No increased work of breathing, no retractions or nasal flaring. Abdomen/GI: Soft, non-tender, with normal bowel sounds. No distension or tympany. No guarding or rebound. No evidence of tenderness throughout. 15:35 Neck: External neck: tenderness, that is moderate, of the left mid cervical area, right mid cervical area, left trapezius and right trapezius, Vital Signs: 15:31 BP 141 / 79; Pulse 90; Resp 17; Temp 98.3; Pulse Ox 98% ; Weight 95.25 kg; Height 5 ft. ll1 11 in. ; Pain 8/10; 16:56 BP 112 / 61; Pulse 101; Resp 18; Pulse Ox 99% on R/A; Pain 10/10; al5 18:40 BP 126 / 88; Pulse 92; Resp 18; Pulse Ox 100% on R/A; al5 15:31 Body Mass Index 29.29 (95.25 kg, 180.34 cm) ll1 15:31 Pain Scale: Adult ll1 16:56 Pain Scale: Adult al5 MDM: 15:35 Patient medically screened. ms3 15:35 Differential diagnosis: cervical strain, Degenerative Disc Disease torticollis. ms3 19:03 Data reviewed: vital signs, nurses notes, lab test result(s), radiologic studies, and ms3 as a result, I will discharge patient. I considered the following discharge prescriptions or medication management in the emergency department Medications were administered in the Emergency Department. See MAR. Independent interpretation of the following test(s) in the Emergency Department X-Ray: My interpretation is X-ray cervical spine images reviewed shows normal vertebral alignment. Counseling: I had a detailed discussion with the patient and/or guardian regarding the historical points, exam findings, and any diagnostic results supporting the discharge/admit diagnosis, lab results, radiology results, the need for outpatient follow up, to return to the emergency department if symptoms worsen or persist or if there are any questions or concerns that arise at home. Response to treatment: the patient's symptoms have mildly improved after treatment, and as a result, I will discharge patient. Special discussion: I discussed with the patient/guardian in detail that at this point there is no indication for admission to the hospital. It is understood, however, that if the symptoms persist or worsen the patient needs to return immediately for re-evaluation. ED course: Discussed x-rays, CTA of neck, labs with patient. Patient to follow-up with primary care physician in 2 to 3 days. All questions were answered. Return precautions discussed include worsening symptoms, or any other concerns. Prescription given for ibuprofen and Flexeril. On reevaluation patient symptoms improved, patient is alert and oriented x 4, steady gait, ambulatory in the emergency department, in no apparent distress. 12/21 16:54 Order name: CBC w/o diff; Complete Time: 17:30 ms3 12/21 16:54 Order name: BMP; Complete Time: 18:01 ms3 12/21 15:40 Order name: C Spine W Obliques XRAY; Complete Time: 16:41 ms3 12/21 16:54 Order name: CT Neck Angio; Complete Time: 18:36 ms3 Administered Medications: 16:02 Drug: HYDROcodone-acetaminophen PO 5 mg-325 mg 1 tabs PO once Route: PO; cm10 17:00 Follow up: Response: No adverse reaction al5 16:02 Drug: Diazepam PO 10 mg PO once Route: PO; cm10 17:00 Follow up: Response: No adverse reaction al5 19:06 Drug: Ketorolac IVP 15 mg IVP once Route: IVP; Site: left antecubital; al5 19:14 Follow up: Response: No adverse reaction al5 Disposition Summary: 12/22/23 19:03 Discharge Ordered Notes: Location: Home ms3 Condition: Stable ms3 Diagnosis - Neck pain ms3 Followup: ms3 - With: Ricky Fatima DO - When: 2 - 3 days - Reason: Recheck today's complaints Discharge Instructions: - Discharge Summary Sheet ms3 - Musculoskeletal Pain ms3 Forms: - Medication Reconciliation Form ms3 - Antibiotic Education ms3 - Prescription Opioid Use ms3 - Patient Portal Instructions ms3 - Leadership Thank You Letter ms3 Prescriptions: - Ibuprofen 600 mg Oral Tablet - take 1 tablet ORAL route every 6 hours As needed take with food; 30 tablet; ms3 Refills: 0, Product Selection Permitted - Cyclobenzaprine 10 mg Oral Tablet - take 1 tablet ORAL route every 8 hours As needed; 30 tablet; Refills: 0, ms3 Product Selection Permitted Signatures: Dispatcher [employer] Debra Mendez RN RN ll1 August Harris DO DO ms3 Madison Payne RN RN cm10 Consuelo Marti RN RN al5
[2023-12-22 19:33] VITALS: BP 126/88; TEMP 98.3; O2SAT 100
== END 2023-12-22 19:15 | disposition home or self-care (01) ==
LOC: ER 15:23
DX: M54.2 Cervicalgia (principal)
CPT/HCPCS: 80048; 36415; 85027; 70498; 72050; 96374; 99284; Q9967